=== PATIENT | female | born 1955 | race Caucasian/White ===

== ENCOUNTER → 2018-04-19 | Outpatient (CLI) | payer BC ==
[~2018-04-19] MED LIST: REGADENOSON 0.4 MG/5 ML DISP.SYRIN. IV ONE
--- NOTE | 2018-04-19 12:16 | RAD ---
MR#: [id number] Date of Study: 04/19/2018 Ordering Physician: GREGG LANE Referring Physician: MARII MARRERO Tech: SOFIE King APPROVED REPORT Test Type: Pharmacological Stress Nurse/Tech: Ramez Edwards RN Test Indications: chest pain Cardiac History: asthma, HTN, x-smoker, DM Medications: See Electronic Medical Record Medical History: See Electronic Medical Record Resting ECG: SR Resting Heart Rate: 64 bpm Resting Blood Pressure: 105/58mmHg Pretest Chest Pain: None Nurse/Tech Notes Lungs CTA, S1S2 Consent: The procedure was explained to the patient in lay terms. Informed consent was witnessed. [place]wick eout was entered into [employer]. History and Stress Test performed by Ramez Edwards RN Pharm. Details Pharmacologic stress testing was performed using 0.4mg per 5ml of regadenoson given intravenously ove r 7-10 seconds. Stress Symptoms No chest pain or symptoms. POST EXERCISE Reason for Termination: Infusion complete Max HR: 110 bpm Max Blood Pressure: 131/64mmHg Blood Pressure response to exercise: Normal blood pressure response during stress. Heart Rate response to exercise: normal response Chest Pain: No. Arrhythmia: No. ST Change: No. INTERPRETATION Stress EKG Conclusion: No evidence of stress induced EKG changes. Imaging Protocol IMAGE PROTOCOL: Rest Tc-99m/stress Tc-99m 1 day Rest: Stress: Viability: Radiopharm.Tc99m ToyrtkgitDn30b Sestamibi Pfvu09vOh 32mCi Duration 17min. 13min. Img Date 04/19/2018 04/19/2018 Inj-Img [id number]. 60min. Rest Admin Site:IV - Right ForearmAdministrator:SOFIE King Stress Admin Site: IV - Right ForearmAdministrator: Dheeraj Redmond, RT (R)(N) STRESS DATA End Diast. Vol.73.0mlAv. Heart Rate73.0bpm End Syst. Vol.19.0mlCO Index BSA0.0L/min Myocardial Tiko611.0gEject. Xsxscmnz71.0% Stress Rates Pk. Fill Rate2.66EDV/secLVtime Pk. Fill 251.60msec Pk. Empty Rate4.73ESV/secLVtime Pk. Fsepp908.44msec /3 Pk. Fill1.57EDV/sec Stress Scores Regional WT0.00Summed WT3.00 Regional WM0.00Summed WM0.00 LV Perfusion There is a small fixed apical perfusion defect suggestive of prior infarct versus apical thinning. Wall Motion Normal wall motion. LV Perf. Quant 17 Seg. SSS5.00 17 Seg. SRS9.00 17 Seg. SDS0.00 Stress Defect Extent (% LAD)12.50Rest Defect Extent (% LAD)16.90Rev. Defect Extent (% LAD)0.00 Stress Defect Extent (% LCX) 11.30Rest Defect Extent (% LCX)18.80Rev. Defect Extent (% LCX)0.00 Stress Defect Extent (% RCA)0.00Rest Defect Extent (% RCA)0.00Rev. Defect Extent (% RCA)0.00 Stress Defect Extent (% ADELA)10.70Rest Defect Extent (% ADELA)14.10Rev. Defect Extent (% ADELA)0.00 Other Information Quality:Good Risk Assessment: Low Risk Conclusion 1. No evidence of EKG changes with stress testing. 2. FIXED apical defect likely anatomical variant, cannot rule out prior infarct but no ischemia noted . 3. Low risk study. 4. EF > 60%. Signed by : Chucky Valdovinos, Electronically Approved : 04/19/2018 12:13:52
== END | disposition home or self-care (01) ==
LOC: NM 08:18
PROVIDERS: ATTEND Family Medicine
DX: R07.89 Other chest pain (principal)
CPT/HCPCS: 78452; 93017; 96374; A9500; J2785